=== PATIENT | male | born 1980 | race Hispanic/Latino ===

== ENCOUNTER 2024-03-30 12:55 | Outpatient (CLI) | payer BC ==
[~2024-03-30 12:55] MED LIST: Iopamidol 370 76% 100 ML VIAL ONE
== END 2024-03-30 12:56 | disposition home or self-care (01) ==
LOC: BICCT 12:55
PROVIDERS: ATTEND Dentist Oral and Maxillofacial Surgery
DX: K01.1 Impacted teeth (principal); K00.6 Disturbances in tooth eruption; J32.0 Chronic maxillary sinusitis; M79.89 Other specified soft tissue disorders
CPT/HCPCS: 70488; Q9967